=== PATIENT | male | born 1990 | race Caucasian/White ===

== ENCOUNTER 2019-12-08 20:17 | Emergency (ER) | payer OTHER ==
[~2019-12-08] VITALS: Ht 180.3 cm; Wt 81.8 kg
[2019-12-08 20:19] VITALS: BP 120/85
== END 2019-12-08 20:31 ==
LOC: ER 20:18
DX: Z02.89 Encounter for other administrative examinations (principal); F12.90 Cannabis use, unspecified, uncomplicated; Z72.89 Other problems related to lifestyle; V98.8XXA Other specified transport accidents, initial encounter; Y93.89 Activity, other specified; Y92.89 Other specified places as the place of occurrence of the external cause; Y99.8 Other external cause status
CPT/HCPCS: 99283